=== PATIENT | female | born 1950 | race Caucasian/White ===

== ENCOUNTER 2017-03-10 22:43 | Emergency (ER) | payer OTHER ==
[~2017-03-10] VITALS: Ht 160 cm; Wt 61.2 kg
[2017-03-10] MEDS ORDERED: SYNTHROID50 MCG (22:52)
[2017-03-11] MEDS ORDERED: KETO10TA2 PO (00:19)
[2017-03-11] MEDS ORDERED: NORFLEX100MG PO (00:19)
== END 2017-03-11 00:14 | disposition home or self-care (01) ==
LOC: ER 22:43
DX: S10.93XA Contusion of unspecified part of neck, initial encounter (principal); S00.83XA Contusion of other part of head, initial encounter; W22.8XXA Striking against or struck by other objects, initial encounter; Y93.E1 Activity, personal bathing and showering; Y92.89 Other specified places as the place of occurrence of the external cause; Y99.8 Other external cause status